=== PATIENT | female | born 1995 | race African-American/Black ===

== ENCOUNTER 2019-07-09 18:36 | Emergency (ER) | payer OTHER ==
[~2019-07-09] VITALS: Ht 157.5 cm; Wt 74.8 kg
[~2019-07-09 18:36] MED LIST: KEFLEX500 MG PO; PYRIDIUM100 M1 PO
[2019-07-09 19:13] LABS: INFLUENZA A ANTIGEN Negative (Negative); INFLUENZA B ANTIGEN Negative (Negative)
[2019-07-09] MEDS ORDERED: PREDNISONE 20 M20 M1 PO (19:32)
[2019-07-09 20:01] VITALS: BP 137/73
== END 2019-07-09 20:02 | disposition home or self-care (01) ==
LOC: M.ERS 18:36
PROVIDERS: Family Medicine
DX: J20.9 Acute bronchitis, unspecified (principal)

== ENCOUNTER 2020-03-14 09:35 | Emergency (ER) | payer OTHER ==
[~2020-03-14] VITALS: Ht 157.5 cm; Wt 87.1 kg
[~2020-03-14 09:35] MED LIST changes: +PREDNISONE 20 M20 M1 PO
[2020-03-14 10:31] VITALS: BP 143/114
== END 2020-03-14 10:31 | disposition home or self-care (01) ==
LOC: M.ERS 09:35
DX: B34.9 Viral infection, unspecified (principal); Z20.828 Contact with and (suspected) exposure to other viral communicable diseases

== ENCOUNTER 2020-09-19 20:16 | Emergency (ER) | payer OTHER ==
[~2020-09-19] VITALS: Ht 157.5 cm; Wt 90.7 kg
[2020-09-19 21:11] LABS: URINE BILIRUBIN NEGATIVE (Negative); URINE BLOOD 3+ (Negative); URINE CLARITY CLOUDY; URINE COLOR YELLOW; URINE GLUCOSE-RANDOM NEGATIVE (Negative); URINE KETONES TRACE (Negative); URINE LEUKOCYTES-REFLEX TRACE (Negative); URINE NITRITE-REFLEX NEGATIVE (Negative); URINE PROTEIN 1+ (Negative); URINE SPECIFIC GRAVITY 1.025 (1.005-1.030)
[2020-09-19 21:14] LABS: HEMATOCRIT 35.7 % (37.0-47.0); HEMOGLOBIN 11.6 gm/dL (12.0-15.0); MCH 26.3 pg (26.0-34.0); MCHC 32.4 g/dL (28.0-37.0); MCV 81.2 fL (80.0-100.0); MPV 8.2 fl. (7.2-11.1); RBC 4.4 mil/uL (4.20-5.00); RDW-CV 14.7 % (10.5-14.5); WBC 8.4 thou/uL (4.0-11.0)
[2020-09-19 21:19] LABS: SQUAMOUS >10 Many /LPF (0-3); URINE RBC >20 Many /HPF (0-2)
[2020-09-19 21:20] LABS: BACTERIA-REFLEX None Seen /HPF (None Seen); CASTS None Seen /LPF (None Seen); CRYSTALS None Seen /LPF (None Seen); MUCUS None Seen strn/LPF (None Seen); URINE WBC-REFLEX 0-5 Rare /HPF (0-5)
[2020-09-19 22:57] VITALS: BP 144/78
== END 2020-09-19 22:57 | disposition home or self-care (01) ==
LOC: M.ERS 20:16
PROVIDERS: Personal Emergency Response Attendant
DX: N93.8 Other specified abnormal uterine and vaginal bleeding (principal)

== ENCOUNTER 2020-11-30 01:02 | Emergency (ER) | payer OTHER ==
[~2020-11-30] VITALS: Ht 157.5 cm; Wt 91.0 kg
[2020-11-30 02:27] LABS: URINE BILIRUBIN NEGATIVE (Negative); URINE BLOOD NEGATIVE (Negative); URINE CLARITY CLEAR; URINE COLOR YELLOW; URINE GLUCOSE-RANDOM NEGATIVE (Negative); URINE KETONES NEGATIVE (Negative); URINE LEUKOCYTES-REFLEX NEGATIVE (Negative); URINE NITRITE-REFLEX NEGATIVE (Negative); URINE PROTEIN NEGATIVE (Negative); URINE SPECIFIC GRAVITY 1.025 (1.005-1.030); URINE UROBILINOGEN 0.2 E.U./dl (0.2-1.0)
[2020-11-30 02:31] LABS: HEMATOCRIT 36.5 % (37.0-47.0); MCH 26.8 pg (26.0-34.0); MCHC 32.8 g/dL (28.0-37.0); MPV 8.3 fl. (7.2-11.1); RBC 4.45 mil/uL (4.20-5.00); RDW-CV 14.4 % (10.5-14.5); WBC 6.3 thou/uL (4.0-11.0)
[2020-11-30 02:36] LABS: CALCIUM 8.5 mg/dL (8.5-10.1); CREATININE 0.8 mg/dL (0.6-1.3)
[2020-11-30 02:41] LABS: ALBUMIN 3.6 g/dL (3.4-5.0); TOTAL BILIRUBIN 0.3 mg/dL (<0.1-1.0); TOTAL PROTEIN 7.4 g/dL (6.4-8.2)
[2020-11-30] MEDS ORDERED: TORADOL 10 MG T10 MG PO (05:53)
[2020-11-30 06:00] VITALS: BP 105/57
--- NOTE | 2020-12-01 11:47 | EKG ---
[place] [address] ELECTROCARDIOGRAM REPORT Name: ESPERANZA GARNETT Room: [facility]#: [id number] Admission: 11/30/20 Attend Phys: Discharge: 11/30/20 Date of : [birth year] Date of Service: 11/30/20110 Report #: [id number] THIS REPORT FOR: //name// [facility] ED Test Date: 2020-11-30 Test Time: 01:11:08 Pat Name: ESPERANZA GARNETT Department: Room: Gender: F Housekeeping Supervisor Hotel: [facility] : 1995 Requested By: Dianelys Reyna Order Number: [id number] Derek MD: Master Smiley Measurements Intervals [place] Rate: 76 P: 66 ND: 169 QRS: 24 QRSD: 180 T: 37 QT: 399 QTc: 449 Interpretive Statements Sinus rhythm No previous ECG available for comparison Electronically Signed On 12-01-2020 11:46:45 CDT by Master Smiley [email or web address] <ELECTRONICALLY SIGNED> By: Master Smiley MD, [facility] 12/01/20 1146 0 0 Master Smiley MD, FACC /EPI
== END 2020-11-30 06:01 | disposition home or self-care (01) ==
LOC: M.ERS 01:02
PROVIDERS: Personal Emergency Response Attendant
DX: D24.1 Benign neoplasm of right breast (principal); R07.89 Other chest pain

== ENCOUNTER 2021-06-10 10:03 | Emergency (ER) | payer OTHER ==
[~2021-06-10] VITALS: Ht 157.5 cm; Wt 96.2 kg
[~2021-06-10 10:03] MED LIST changes: +TORADOL 10 MG T10 MG PO
[2021-06-10] MEDS ORDERED: IBUPROFEN 800800 M1 PO (13:54)
[2021-06-10] MEDS ORDERED: FLEXERIL PO (13:54)
[2021-06-10 14:04] VITALS: BP 117/90
== END 2021-06-10 14:05 | disposition home or self-care (01) ==
LOC: M.ERS 10:03
DX: M79.605 Pain in left leg (principal)